=== PATIENT | male | born 1980 | race Caucasian/White ===

== ENCOUNTER 2017-05-17 10:40 | Emergency (ER) | payer OTHER ==
[~2017-05-17 10:40] MED LIST: CIPRODEX OTIC7.5 ML OT; IBUPROFEN800 M1 PO; KEFLEX500 M1 PO; OXYCODONE HCL5 M1 PO; PERCOCET 5-3251 EACH PO; ROBAXIN500 M1 PO; SOMA250 M1 PO; TRAMADOL HCL50 M1 PO
== END 2017-05-17 11:25 | disposition admitted as inpatient to this hospital (09) ==
LOC: CANPREER → ERH 10:40
DX: Z48.02 Encounter for removal of sutures (principal)

== ENCOUNTER 2017-08-03 10:37 | Emergency (ER) | payer OTHER ==
[~2017-08-03] VITALS: Ht 182.9 cm; Wt 74.8 kg
[2017-08-03 11:28] LABS: ABSOLUTE BASOPHIL COUNT 0.1 /CUMM (0.0-0.2); ABSOLUTE EOSINOPHIL COUNT 0.2 /CUMM (0.0-0.7); ABSOLUTE GRANULOCYTE CT 6.7 /CUMM (1.4-6.5); ABSOLUTE LYMPH COUNT 2.4 /CUMM (1.2-3.4); ABSOLUTE MONOCYTE COUNT 0.8 /CUMM (0.10-0.60); BASOPHIL % 0.7 % (0.0-2.0); EOSINOPHIL % 1.8 % (0-5); GRANULOCYTE % 66.1 % (42.2-75.2); HEMATOCRIT 47.7 % (42-52); MEAN CORPUSCULAR HGB 30.6 PG (27.0-31.0); MEAN CORPUSCULAR HGB CONC 33.4 G/DL (33.0-37.0); MEAN CORPUSCULAR VOLUME 91.8 FL (80.0-94.0); MEAN PLATELET VOLUME 8.2 FL (7.4-10.4); PLATELET COUNT 274 /CUMM (130-400); RBC DISTRIBUTION WIDTH 13.3 % (11.5-14.5); WHITE BLOOD CELL COUNT 10.1 /CUMM (4.8-10.8)
[2017-08-03 13:13] VITALS: BP 108/70
[2017-08-03] MEDS ORDERED: CLONIDINE HCL0.1 MG PO (13:34)
--- NOTE | 2017-08-03 13:34 | ED GENERAL ADULT ---
History of Present Illness General Chief Complaint: ETOH/Drug Related Complaint Stated Complaint: "GOING THROUGH WITHDRAWL OF HEROIN.DONT FEEL GOOD" Source: patient Exam Limitations: no limitations Vital Signs & Intake/Output Vital Signs & Intake/Output Vital Signs Date Time Temp Pulse Resp B/P B/P Pulse O2 O2 Flow FiO2 Mean Ox Delivery Rate 08/03 1313 98.0 96 18 108/70 97 Room Air 08/03 1304 107 117/67 08/03 1109 97.5 110 16 115/75 97 Room Air Allergies Coded Allergies: NO KNOWN ALLERGIES (NKDA) (08/12/10) Reconcile Medications Clonidine HCl 0.1 MG TABLET 1 TAB PO BID PRN WITHDRAW Triage Note: PT TO ER STATES THAT HE IS WITHDRAWING FROM HEROIN. PT LAST USED YESTERDAY AM. PT STATES HE EATS IT ON HIS FOOD, DOES NOT SNORT OF SHOOT UP PER PT. PT C/O HEADACHE, CANT SLEEP, DIARRHEA, HOT COLD. PT ALSO REQUESTING HELP TO STOP USING. Triage Nurses Notes Reviewed? yes Onset: Gradual Duration: week(s): (4 MONTHS) Timing: recent history Injury Environment: home Severity: moderate, severe No Modifying Factors: none HPI: 37-year-old male past medical history of narcotic abuse presents for evaluation of heroin withdrawal. Patient states she has been using heroin daily for the past 4 months. He states that he does not significant or injected the heroin he eats it on his food. He last used yesterday. He denies any other drug use no alcohol use. No benzos. He feels like he is in withdrawal currently. He reports hot and cold flashes sweats chills nausea headache body aches. No diarrhea. No vomiting. He has been able tolerate fluids. No history of withdrawal seizures. No suicidal or homicidal ideation. He is not taking any medicine for her symptoms. Past History Travel History Traveled to [place] past 21 day No Medical History Any Pertinent Medical History? see below for history Neurological: NONE EENT: hearing loss Cardiovascular: NONE Respiratory: asthma, CHILDHOOD Gastrointestinal: NONE Hepatic: NONE Renal: NONE Musculoskeletal: NONE Psychiatric: NONE Endocrine: NONE Blood Disorders: NONE Cancer(s): NONE BUTCHER SCULLION/Reproductive: NONE Tetanus Vaccine: 05/13/17 Surgical History Surgical History: none Psychosocial History What is your primary language Upper Sorbian Tobacco Use: Current Daily Use Daily Tobacco Use Amount/Type: => 5 Cigarettes daily Family History Hx Contributory? No Review of Systems Review of Systems Constitutional: Reports: chills, diaphoresis, malaise. EENTM: Reports: no symptoms. Respiratory: Reports: no symptoms. Cardiovascular: Reports: no symptoms. GI: Reports: no symptoms. Genitourinary: Reports: no symptoms. Musculoskeletal: Reports: joint pain, muscle pain. Skin: Reports: see HPI. Neurological/Psychological: Reports: no symptoms. Hematologic/Endocrine: Reports: no symptoms. Immunologic/Allergic: Reports: no symptoms. All Other Systems: Reviewed and Negative Physical Exam Physical Exam General Appearance: well developed/nourished, no apparent distress, alert, awake Head: atraumatic, normal appearance Eyes: Bilateral: normal appearance, PERRL, EOMI. Ears, Nose, Throat: normal pharynx, normal ENT inspection, hearing grossly normal Neck: normal inspection, supple, full range of motion Respiratory: normal breath sounds, chest non-tender Cardiovascular: regular rate/rhythm, normal peripheral pulses Peripheral Pulses: 2+ radial (R), 2+ radial (L) Gastrointestinal: soft, non-tender Back: normal inspection, normal range of motion Extremities: normal inspection, normal range of motion, no edema Neurologic/Psych: no motor/sensory deficits, awake, alert, oriented x 3, normal gait Skin: intact, normal color, warm/dry Core Measures ACS in differential dx? No CVA/TIA Diagnosis: No Sepsis Present: No Sepsis Focused Exam Completed? No Progress Differential Diagnoses I considered the following diagnoses in my evaluation of the patient: [Drug intoxication, drug withdrawal, electrolyte abnormality] Plan of Care: Orders Procedure Date/time Status ETHANOL 08/03 1056 Complete COMPREHENSIVE METABOLIC PANEL 08/03 1056 Complete CBC WITHOUT DIFFERENTIAL 08/03 1056 Complete Laboratory Tests 08/03/17 1115: Anion Gap 13, Estimated GFR > 60, BUN/Creatinine Ratio 18.8, Glucose 106 H, Calcium 10.1, Total Bilirubin 0.7, AST 20, ALT 32, Alkaline Phosphatase 68, Total Protein 8.2, Albumin 5.3 H, Globulin 2.9, Albumin/Globulin Ratio 1.8, CBC w Diff NO MAN DIFF REQ, RBC 5.20, MCV 91.8, MCH 30.6, MCHC 33.4, RDW 13.3, MPV 8.2, Gran % 66.1, Lymphocytes % 23.8, Monocytes % 7.6, Eosinophils % 1.8, Basophils % 0.7, Absolute Granulocytes 6.7 H, Absolute Lymphocytes 2.4, Absolute Monocytes 0.8 H, Absolute Eosinophils 0.2, Absolute Basophils 0.1, Serum Alcohol < 10.0 08/03/17 1056: Methadone Screen Cancelled, Barbiturate Screen Cancelled, Ur Phencyclidine Scrn Cancelled, Amphetamines Screen Cancelled, U Benzodiazepines Scrn Cancelled, Urine Cocaine Screen Cancelled, Urine Cannabis Screen Cancelled Patient seen and evaluated. He reports oral intake of heroin for the past 4 months daily. He denies any benzodiazepine or alcohol use no history of withdrawal seizures. Vital signs are stable last used yesterday. He is currently sober. He is not suicidal. Basic blood work is within normal limits. Patient was medicated with clonidine reports feeling much better. He was unable to provide a urine sample. Discussed with patient about the importance of being honest when he is using as benzodiazepine withdrawal or alcohol withdrawal can be fatal. Patient understands this. Patient be discharged with a prescription for clonidine to use as needed for withdrawal symptoms. Advised him to follow-up with primary care doctor will be right with a list of outpatient detox centers. Discussed return precautions in detail patient agrees the plan. Initial ED EKG: none Departure Departure Disposition: HOME OR SELF CARE Condition: Stable Clinical Impression Primary Impression: Heroin withdrawal Referrals: Clare SIBLEY,Leonid Ghosh (PCP/Family) Additional Instructions: Continue clonidine as needed for withdrawal symptoms. Tylenol or ibuprofen as needed for pain. Drink plenty of fluids. Make a follow-up with YOUr primary care doctor and outpatient detox center. Monitor symptoms return with any concerns. Departure Forms: Customer Survey General Discharge Information Prescriptions: Current Visit Scripts Clonidine HCl 1 TAB PO BID PRN WITHDRAW #30 TAB Critical Care Note Critical Care Note Critical Care Time: non-applicable
== END 2017-08-03 13:41 ==
LOC: ERH 10:37
PROVIDERS: Emergency Medicine
DX: F11.23 Opioid dependence with withdrawal (principal)
CPT/HCPCS: 80307; G0480

== ENCOUNTER 2017-10-22 17:48 | Emergency (ER) | payer OTHER ==
[~2017-10-22] VITALS: Ht 182.9 cm; Wt 74.8 kg
[~2017-10-22 17:48] MED LIST changes: +CLONIDINE HCL0.1 MG PO
[2017-10-22 17:51] VITALS: BP 134/81
--- NOTE | 2017-10-22 18:11 | ED NECK/BACK PAIN COMPLAINT ---
History of Present Illness General Chief Complaint: Low Back Pain/Injury Stated Complaint: BACK PAIN Source: patient Exam Limitations: no limitations Vital Signs & Intake/Output Vital Signs & Intake/Output Vital Signs Date Time Temp Pulse Resp B/P B/P Pulse O2 O2 Flow FiO2 Mean Ox Delivery Rate 10/22 1751 98.0 92 18 134/81 98 Room Air Room Air ED Intake and Output 10/23 0000 10/22 1200 Intake Total 0 Output Total Balance 0 Intake, Oral 0 Patient 165 lb Weight Weight Reported by Patient Measurement Method Allergies Coded Allergies: NO KNOWN ALLERGIES (NKDA) (08/12/10) Reconcile Medications Carisoprodol (SOMA) 250 MG TABLET 1 TAB PO QPM back spasms Clonidine HCl 0.1 MG TABLET 1 TAB PO BID PRN WITHDRAW Naproxen (Naprosyn) 500 MG TABLET 1 TAB PO BID back pain Triage Note: PT TO ED S/P "ALL I DID WAS BEND OVER, SUDDEN ONSET OF LOW BACK PAIN, THIS AFTERNOON, TOOK IBUPROFEN, ALEVE, IT'S NOT WORKING". Triage Nurses Notes Reviewed? yes Onset: Abrupt Duration: hour(s):, constant Timing: recent history Quality/Severity: moderate Location: lumbar spine Loss of Consciousness: no loss of consciousness HPI: 37-year-old male comes into the emergency room for further evaluation of low back pain. Patient reports she was bending down to pick something up when he felt a pull in his low back and has had pain since then. Denies any numbness or tingling. Pain is sharp. Located across the lower aspect of back. No radiation of pain. Nothing seems to make the symptoms better or worse. Comes in for further evaluation. (Linwood Burnett) Past History Travel History Traveled to [place] past 21 day No Medical History Any Pertinent Medical History? see below for history Neurological: NONE EENT: hearing loss Cardiovascular: NONE Respiratory: asthma, CHILDHOOD Gastrointestinal: NONE Hepatic: NONE Renal: NONE Musculoskeletal: NONE Psychiatric: NONE Endocrine: NONE Blood Disorders: NONE Cancer(s): NONE DIRECTOR CALL/Reproductive: NONE Tetanus Vaccine: 05/13/17 Surgical History Surgical History: none Psychosocial History What is your primary language Stateless Tobacco Use: Current Daily Use Daily Tobacco Use Amount/Type: => 5 Cigarettes daily ETOH Use: denies use Illicit Drug Use: marijuana Family History Hx Contributory? No (Linwood Burnett) Review of Systems Review of Systems Constitutional: Reports: no symptoms. Eyes: Reports: no symptoms. Ears, Nose, Throat, Mouth: Reports: no symptoms. Respiratory: Reports: no symptoms. Cardiovascular: Reports: no symptoms. Gastrointestinal/Abdominal: Reports: no symptoms. Musculoskeletal: Reports: see HPI. Skin: Reports: no symptoms. Neurological/Psychological: Reports: no symptoms. All Other Systems: Reviewed and Negative (Linwood Burnett) Physical Exam Physical Exam General Appearance: well developed/nourished, mild distress Head: atraumatic Eyes: Bilateral: normal appearance. Ears, Nose, Throat, Mouth: hearing grossly normal, moist mucous membrane Neck: normal inspection, full range of motion Respiratory: normal breath sounds, no respiratory distress Gastrointestinal: soft, non-tender Back: normal inspection, normal range of motion Extremities: normal range of motion Neurologic/Psych: awake, alert, oriented x 3, normal mood/affect Skin: intact, normal color, warm/dry Core Measures CVA/TIA Diagnosis: No (Linwood Burnett) Progress Differential Diagnosis: cauda equina syn, herniated disc, myofascial strain, spinal cord inj Plan of Care: Orders Procedure Date/time Status XRY-LUMBOSACRAL SPINE AP & LAT 10/22 1809 Active Diagnostic Imaging: Viewed by Me: Radiology Read. Discussed w/RAD: Radiology Read. Radiology Impression: PATIENT: BRUCE GARCIA PRESENT AGE: 37 PATIENT ACCOUNT NO: [id number] : 82 LOCATION: [facility] ORDERING PHYSICIAN: Linwood SCHUMACHER SERVICE DATE: 10/22/17 EXAM TYPE : RAD - XRY-LUMBOSACRAL SPINE AP & LAT EXAMINATION: XR LUMBOSACRAL SPINE CLINICAL INFORMATION: Low back pain after bending COMPARISON: 10/08/2014 TECHNIQUE: AP and lateral views of the lumbar spine. FINDINGS: Rotatory levoconvex scoliosis is more prominent. Normal alignment and lordosis. Minimal degenerative disc disease, most prominent at L2-L3. No acute osseous abnormality. IMPRESSION: Mild degenerative change and scoliosis with no acute abnormality. DICTATED BY: Sabino Yap MD DATE/TIME DICTATED:10/22/171907 SALES OPERATIONS MANAGER:MARYANN DATE/TIME TRANSCRIBED:10/22/171907 CONFIDENTIAL, DO NOT COPY WITHOUT APPROPRIATE AUTHORIZATION. <Electronically signed in Other Vendor System> SIGNED BY: Sabino Yap MD 10/22/171912 (Linwood Burnett) Departure Departure Disposition: HOME OR SELF CARE Condition: Stable Clinical Impression Primary Impression: Strain of muscle, fascia and tendon of lower back, initial encounter Referrals: Clare SIBLEY,Leonid Ghosh (PCP/Family) Additional Instructions: Taking Naprosyn and SOMA as prescribed. Follow-up with primary care doctor. Return if any concerns worsening symptoms. Please go over all results of today's visit with your primary care doctor. Contact your primary care doctor to let them know you were here in the emergency room. There may be nonspecific findings which may not be related to your visit today here in the emergency room but may require further evaluation and chronic monitoring by your primary care doctor. If you had a laceration today the chance of foreign body always remains. You should follow-up with your primary care doctor for recheck in 3-5 days for a wound check. If you had an x-ray done there is a chance that a fracture could have been missed on initial read and you should follow-up with your primary care doctor for repeat x-rays if symptoms persist. If your blood pressure was elevated here in the emergency room please have rechecked by [facility] primary care doctor within the next 48. If you were prescribed a narcotic here in the emergency room or any type of controlled substances you're not allowed to drive while taking this medication or operate any type of heavy machinery. Narcotics can make you feel lightheaded dizziness nausea and can cause constipation. You may need to picking supervisor a stool softener. Thank you for choosing [facility] emergency room. Please return to the emergency room immediately if you have any other concerns worsening of symptoms. Departure Forms: Customer Survey General Discharge Information Prescriptions: Current Visit Scripts Carisoprodol (SOMA) 1 TAB PO QPM #10 TAB Naproxen (Naprosyn) 1 TAB PO BID #30 TAB Comments 10/23/2017 12:20:25 AM Pain is reproducible and lower back. Worse with range of motion. Consistent with muscular pain. (Linwood Burnett) PA/AIRLINE PILOT/FIRST OFFICER Co-Sign Statement Statement: ED Attending supervision documentation- I saw and evaluated the patient. I have also reviewed all the pertinent lab results and diagnostic results. I agree with the findings and the plan of care as documented in the PA's/AIRLINE PILOT/FIRST OFFICER's documentation. x I have reviewed the ED Record and agree with the PA's/AIRLINE PILOT/FIRST OFFICER's documentation. [] Additions or exceptions (if any) to the PAs/AIRLINE PILOT/FIRST OFFICER's note and plan are summarized below: [] (Adin SIBLEY,Jc)
--- NOTE | 2017-10-22 19:13 | RADIOLOGY REPORT ---
EXAMINATION: XR LUMBOSACRAL SPINE CLINICAL INFORMATION: Low back pain after bending COMPARISON: 10/08/2014 TECHNIQUE: AP and lateral views of the lumbar spine. FINDINGS: Rotatory levoconvex scoliosis is more prominent. Normal alignment and lordosis. Minimal degenerative disc disease, most prominent at L2-L3. No acute osseous abnormality. IMPRESSION: Mild degenerative change and scoliosis with no acute abnormality.
[2017-10-22] MEDS ORDERED: SOMA250 M1 PO (19:34)
[2017-10-22] MEDS ORDERED: NAPROSYN500 M1 PO (19:34)
== END 2017-10-22 19:41 ==
LOC: ERH 17:48
DX: S39.012A Strain of muscle, fascia and tendon of lower back, initial encounter (principal); X50.9XXA Other and unspecified overexertion or strenuous movements or postures, initial encounter; Y93.89 Activity, other specified
CPT/HCPCS: 72100